=== PATIENT | female | born 1995 | race African-American/Black ===

== ENCOUNTER 2022-08-29 07:48 | Emergency (ER) | payer OTHER ==
[2022-08-29] MEDS ORDERED: Ketorolac Tromethamine 30 MG/ML VIAL ONE (09:54)
== END 2022-08-29 10:29 | disposition home or self-care (01) ==
LOC: ERS 07:48
DX: S00.93XA Contusion of unspecified part of head, initial encounter (principal); S09.90XA Unspecified injury of head, initial encounter; M25.511 Pain in right shoulder; V49.9XXA Car occupant (driver) (passenger) injured in unspecified traffic accident, initial encounter; F17.210 Nicotine dependence, cigarettes, uncomplicated
CPT/HCPCS: 70450; 96372; J1885